=== PATIENT | female | born 2000 | race Caucasian/White ===

== ENCOUNTER 2021-07-14 10:54 | Emergency (ER) | payer BC, OTHER ==
[~2021-07-14] VITALS: Ht 154.9 cm; Wt 55.8 kg
[~2021-07-14 10:54] MED LIST: ASMANEX0.24 GM INH; CEPHALEXIN500 MG PO; MEDROXYPRO150 MG/1 M IM; VENTOLIN HFA18 GM INH
[2021-07-14] MEDS ORDERED: AMOXICILLIN500 MG PO (12:54)
== END 2021-07-14 17:05 | disposition home or self-care (01) ==
LOC: ED 10:54
DX: J02.9 Acute pharyngitis, unspecified (principal); J45.909 Unspecified asthma, uncomplicated; Z88.8 Allergy status to other drugs, medicaments and biological substances; Z88.2 Allergy status to sulfonamides; Z88.5 Allergy status to narcotic agent; Z88.1 Allergy status to other antibiotic agents; Z91.048 Other nonmedicinal substance allergy status; Z79.899 Other long term (current) drug therapy
CPT/HCPCS: 36415; 70491; 80048; 84703; 85025; 86140; 86308; 96375; 99284-25; J1100; J1885; J7030

== ENCOUNTER 2021-10-28 11:53 | Emergency (ER) | payer BC, OTHER ==
[~2021-10-28] VITALS: Ht 154.9 cm; Wt 55.3 kg
[~2021-10-28 11:53] MED LIST changes: +AMOXICILLIN500 MG PO
== END 2021-10-28 16:05 | disposition home or self-care (01) ==
LOC: ED 11:53
DX: J02.9 Acute pharyngitis, unspecified (principal); Z20.822 Contact with and (suspected) exposure to COVID-19; J45.909 Unspecified asthma, uncomplicated; Z88.8 Allergy status to other drugs, medicaments and biological substances; Z88.5 Allergy status to narcotic agent; Z88.2 Allergy status to sulfonamides; Z91.048 Other nonmedicinal substance allergy status; Z88.1 Allergy status to other antibiotic agents; Z79.899 Other long term (current) drug therapy
CPT/HCPCS: 87502; 87880; 99283; C9803; J1100; U0003

== ENCOUNTER 2021-11-26 06:22 | Emergency (ER) | payer BC, OTHER ==
[~2021-11-26] VITALS: Ht 154.9 cm; Wt 55.3 kg
--- OUTSIDE RECORDS SUMMARY | 2021-11-26 06:28 | XMS ---
PreManage Notification: PIERCE CHRISTINA Security Stunt Double Events No recent Security Events currently on file CRITERIA MET - [facility] - 2 Visits in 30 Days CARE PROVIDERS SHAAN RODRÍGUEZ Nurse Practitioner: Adult Health Current PHONE: [phone] Luz has no Care Guidelines for this patient. Joseph VISIT COUNT (12 MO.) 3 [facility] TOTAL 3 NOTE: Visits indicate total known visits. ED/UCC VISIT TRACKING (12 MO.) 11/26/2021 06:22 [facility] TYPE: Emergency COMPLAINT: - FLU SYMPTOMS 10/28/2021 11:54 [facility] TYPE: Emergency COMPLAINT: - SORE THROAT DIAGNOSES: - Other intermodal owner operator truck driver (current) drug therapy - Unspecified asthma, uncomplicated - Acute pharyngitis, unspecified - Contact with and (suspected) exposure to COVID-19 - Allergy status to other antibiotic agents - Allergy status to sulfonamides - Allergy status to other drugs, medicaments and biological substances - Other nonmedicinal substance allergy status - Allergy status to narcotic agent 07/14/2021 10:55 [facility] TYPE: Emergency COMPLAINT: - SWOLLEN TONSILS, FEVER, BODY/HEAD/EAR ACHES, SOB DIAGNOSES: - Unspecified asthma, uncomplicated - Cough, unspecified - Allergy status to narcotic agent - Allergy status to other antibiotic agents - Acute pharyngitis, unspecified - Allergy status to other drugs, medicaments and biological substances - Allergy status to sulfonamides - COUGH, UNSPECIFIED - Other intermodal owner operator truck driver (current) drug therapy - Other nonmedicinal substance allergy status INPATIENT VISIT TRACKING (12 MO.) No inpatient visits to display in this time frame [email or web address]
== END 2021-11-26 07:15 | disposition home or self-care (01) ==
LOC: ED 06:22
DX: U07.1 COVID-19 (principal); J35.1 Hypertrophy of tonsils; J45.909 Unspecified asthma, uncomplicated; Z88.1 Allergy status to other antibiotic agents; Z88.8 Allergy status to other drugs, medicaments and biological substances; Z88.5 Allergy status to narcotic agent; Z88.2 Allergy status to sulfonamides; Z91.048 Other nonmedicinal substance allergy status; Z79.899 Other long term (current) drug therapy
CPT/HCPCS: 87502; 99283; U0003

== ENCOUNTER 2023-04-07 22:04 | Emergency (ER) | payer BC, OTHER ==
[~2023-04-07] VITALS: Ht 154.9 cm; Wt 51.7 kg
[~2023-04-07 22:04] MED LIST changes: +BUDESONIDE-FO10.2 GM INH; +TRIAMCINOLONE A15 GM TOP
[2023-04-07] MEDS ORDERED: SYMBICORT 80-10.2 GM (22:17)
[2023-04-07 22:46] LABS: BASOPHILS 0.3 % (0-2); EOSINOPHILS 2.6 % (0-6); HEMATOCRIT 45.3 % (35.0-50.0); HEMOGLOBIN 15.6 g/dL (12.0-18.0); LYMPHOCYTES 20.8 % (24-44); MCH 31.6 (27-36); MCHC 34.5 g/dl (30-36); MCV 91.5 fl (81-99); MONOCYTES 7.2 % (0-12); NEUTROPHILS 69.1 % (39-80); PLATELET COUNT 365 K/uL (140-440); RBC 4.96 M/ul (4.3-5.7); RDW 12.7 (10.5-15.0)
[2023-04-07 22:52] LABS: BILIRUBIN, URINE POSITIVE (negative); BLOOD/HGB, URINE LARGE (Negative); KETONE, URINE TRACE (Negative); LEUK ESTERASE, URINE NEGATIVE (negative); NITRITE, URINE POSITIVE (negative); PH, URINE 6.5 (5-7)
[2023-04-07 22:57] LABS: EPITHELIAL CELLS, URINE SQUAMOUS 2+ /lpf (0-1+); RED BLOOD CELLS, URINE >50 /hpf (0-5)
[2023-04-07 22:58] LABS: ALBUMIN 5.2 g/dL (3.4-5.0); ALBUMIN/GLOBULIN RATIO 1.58 (1.1-2.4); ANION GAP 14.6 (7-21); BACTERIA, URINE RARE /hpf (negative); BUN/CREATININE RATIO 10.98 (6.0-28.6); CALCIUM 9.1 mg/dL (8.5-10.1); CREATININE, SERUM 0.91 mg/dL (0.55-1.02); POTASSIUM 3.6 mmol/L (3.5-5.1); PROTEIN, TOTAL 8.5 g/dL (6.4-8.2); REFLEX CULTURE, URINE No (No)
[2023-04-08] MEDS ORDERED: LEVOFLOXACIN500 MG PO (00:24)
[2023-04-08] MEDS ORDERED: TRAMADOL HCL50 MG PO (00:28)
[2023-04-08] MEDS ORDERED: ONDANSETRON ODT8 MG PO (00:28)
[2023-04-08 00:50] VITALS: BP 118/79
== END 2023-04-08 00:40 | disposition home or self-care (01) ==
LOC: ED 22:04
PROVIDERS: Family Medicine
DX: N12 Tubulo-interstitial nephritis, not specified as acute or chronic (principal); Q24.6 Congenital heart block; J45.909 Unspecified asthma, uncomplicated; Z95.0 Presence of cardiac pacemaker; Z91.048 Other nonmedicinal substance allergy status; Z88.1 Allergy status to other antibiotic agents; Z88.2 Allergy status to sulfonamides; Z88.8 Allergy status to other drugs, medicaments and biological substances; Z79.51 Long term (current) use of inhaled steroids
CPT/HCPCS: 36415; 74176; 80053; 81001; 84703; 85025; A9270; J1885; J2405; J7030

== ENCOUNTER 2023-10-26 17:08 | Emergency (ER) | payer BC, OTHER ==
[~2023-10-26] VITALS: Ht 154.9 cm; Wt 50.3 kg
[~2023-10-26 17:08] MED LIST changes: +LEVOFLOXACIN500 MG PO; +ONDANSETRON ODT8 MG PO; +SYMBICORT 80-10.2 GM; +TRAMADOL HCL50 MG PO
[2023-10-26] MEDS ORDERED: HYDROXYZINE HCL25 MG PO (18:28)
[2023-10-26 19:01] LABS: BASOPHILS 0.6 % (0-2); EOSINOPHILS 3.7 % (0-6); HEMOGLOBIN 14.5 g/dL (12.0-18.0); LYMPHOCYTES 19.7 % (24-44); MCH 31.5 (27-36); MCHC 34.4 g/dl (30-36); MCV 91.4 fl (81-99); MONOCYTES 7.6 % (0-12); NEUTROPHILS 68.4 % (39-80); PLATELET COUNT 313 K/uL (140-440); RDW 12.6 (10.5-15.0)
[2023-10-26] MEDS ORDERED: LACTATED RINGER'S 1,000 ML IV ONE (19:15)
[2023-10-26 19:21] LABS: ALBUMIN/GLOBULIN RATIO 1.25 (1.1-2.4); ANION GAP 12.6 (7-21); BILIRUBIN, TOTAL 1.1 ng/dL (0.2-1.0); BUN/CREATININE RATIO 12.94 (6.0-28.6); CALCIUM 8.7 mg/dL (8.5-10.1); CREATININE, SERUM 0.85 mg/dL (0.55-1.02); MAGNESIUM 1.9 mg/dL (1.8-2.4); POTASSIUM 3.6 mmol/L (3.5-5.1); PROTEIN, TOTAL 7.2 g/dL (6.4-8.2)
[2023-10-26] MEDS ORDERED: ONDANSETRON ODT4 MG PO (20:13)
[2023-10-26 20:29] VITALS: BP 118/80
== END 2023-10-26 20:29 | disposition home or self-care (01) ==
LOC: ED 17:08
PROVIDERS: Internal Medicine
DX: K52.9 Noninfective gastroenteritis and colitis, unspecified (principal); Z95.0 Presence of cardiac pacemaker; Z91.09 Other allergy status, other than to drugs and biological substances; Z88.1 Allergy status to other antibiotic agents; Z88.8 Allergy status to other drugs, medicaments and biological substances; Z88.2 Allergy status to sulfonamides; Z88.5 Allergy status to narcotic agent; Z79.899 Other long term (current) drug therapy
CPT/HCPCS: 36415; 80053; 83690; 83735; 84703; 85025; 99284; J7121

== ENCOUNTER 2024-08-11 16:52 | Emergency (ER) | payer OTHER ==
[~2024-08-11] VITALS: Ht 154.9 cm; Wt 53.8 kg
[~2024-08-11 16:52] MED LIST changes: +HYDROXYZINE HCL25 MG PO; +ONDANSETRON ODT4 MG PO
[2024-08-11] MEDS ORDERED: droPERidol 5 MG/2 ML VIAL IV ONE (17:15)
[2024-08-11] MEDS ORDERED: ondansetron HCL 4 MG/2 ML VIAL IV ONE (17:15)
[2024-08-11] MEDS ORDERED: SODIUM CHLORIDE 0.9% 1,000 ML IV ONE ×2 (17:15→19:30)
[2024-08-11] MEDS ORDERED: BUDESONIDE-FO10.2 GM IH (17:18)
[2024-08-11 17:48] LABS: BASOPHILS 0.2 % (0-2); EOSINOPHILS 0.7 % (0-6); HEMATOCRIT 43.8 % (35.0-50.0); HEMOGLOBIN 15.3 g/dL (12.0-18.0); LYMPHOCYTES 5.7 % (24-44); MCH 31.7 (27-36); MCHC 34.9 g/dl (30-36); MCV 90.9 fl (81-99); NEUTROPHILS 85.4 % (39-80); PLATELET COUNT 309 K/uL (140-440); RBC 4.82 M/ul (4.3-5.7); RDW 12.6 (10.5-15.0)
[2024-08-11 18:03] LABS: ALBUMIN 4.6 g/dL (3.4-5.0); ALBUMIN/GLOBULIN RATIO 1.44 (1.1-2.4); ANION GAP 20.8 (7-21); BILIRUBIN, TOTAL 1.4 mg/dL (0.2-1.0); CALCIUM 9.3 mg/dL (8.5-10.1); POTASSIUM 3.8 mmol/L (3.5-5.1); PROTEIN, TOTAL 7.8 g/dL (6.4-8.2)
[2024-08-11] MEDS ORDERED: PROMETHAZINE HC25 M1 PO (18:59)
[2024-08-11] MEDS ORDERED: ONDANSETRON ODT8 MG PO (18:59)
[2024-08-11] MEDS ORDERED: PROMETHAZINE HCL 25 MG HOME.PACK PO ONE (19:00)
[2024-08-11] MEDS ORDERED: ONDANSETRON 4 MG HOME.PACK SL ONE (19:00)
[2024-08-11] MEDS ORDERED: ACETAMINOPHEN 500 MG TAB PO ONE (19:30)
[2024-08-11 19:51] LABS: LACTIC ACID, BLOOD 1.4 mmol/L (0.4-2.0)
[2024-08-11 20:01] LABS: CORONAVIRUS COVID-19 AG NEGATIVE (NEGATIVE); INFLUENZA A AG POSITIVE (NEGATIVE); INFLUENZA B AG NEGATIVE (NEGATIVE)
[2024-08-11] MEDS ORDERED: OSELTAMIVIR PHOSPHATE 75 MG HOME.PACK PO ONE (20:15)
[2024-08-11 21:01] LABS: BILIRUBIN, URINE NEGATIVE (negative); BLOOD/HGB, URINE NEGATIVE (Negative); KETONE, URINE >=80 (Negative); LEUK ESTERASE, URINE NEGATIVE (negative); NITRITE, URINE NEGATIVE (negative); PH, URINE 8.5 (5-7)
[2024-08-11 21:26] VITALS: BP 106/68
== END 2024-08-11 21:26 | disposition home or self-care (01) ==
LOC: ED 16:52
PROVIDERS: Emergency Medicine
DX: J10.1 Influenza due to other identified influenza virus with other respiratory manifestations (principal); J45.909 Unspecified asthma, uncomplicated; Z79.51 Long term (current) use of inhaled steroids; Z79.899 Other long term (current) drug therapy; Z91.048 Other nonmedicinal substance allergy status; Z88.5 Allergy status to narcotic agent; Z88.2 Allergy status to sulfonamides; Z88.8 Allergy status to other drugs, medicaments and biological substances; Z88.1 Allergy status to other antibiotic agents
CPT/HCPCS: 36415; 71045; 80053; 81003; 83605; 83690; 84703; 85025; 87040; 96374; 96375; 99285-25; A9270; G0103; J1790; J2405; J7030

== ENCOUNTER 2024-12-11 20:32 | Emergency (ER) | payer OTHER ==
[~2024-12-11] VITALS: Ht 154.9 cm; Wt 57.0 kg
[~2024-12-11 20:32] MED LIST changes: +BUDESONIDE-FO10.2 GM IH; +PROMETHAZINE HC25 M1 PO
[2024-12-11] MEDS ORDERED: ALBUTEROL SULFATE 0.5% 2.5 MG/0.5 ML VIAL INH ONE (21:00)
[2024-12-11] MEDS ORDERED: ALBUTEROL/IPRATROPIUM 3 ML NEB INH ONE (21:00)
[2024-12-11] MEDS ORDERED: predniSONE 20 MG TAB PO ONE (21:00)
[2024-12-11] MEDS ORDERED: BUDESONIDE 0.5 MG/2 ML VIAL INH ONE (21:00)
[2024-12-11] MEDS ORDERED: ALBUTEROL SULFATE 0.083% 3 ML VIAL ONE (21:14)
[2024-12-11] MEDS ORDERED: methylPREDNISolone 4 MG HOME.PACK PO ONE (22:00)
[2024-12-11] MEDS ORDERED: AZITHROMYCIN 250 MG HOME.PACK PO ONE (22:00)
[2024-12-11 22:30] VITALS: BP 126/78
== END 2024-12-11 22:31 | disposition home or self-care (01) ==
LOC: ED 20:32
DX: J45.901 Unspecified asthma with (acute) exacerbation (principal); Z79.51 Long term (current) use of inhaled steroids; Z79.899 Other long term (current) drug therapy; Z91.048 Other nonmedicinal substance allergy status; Z88.1 Allergy status to other antibiotic agents; Z88.5 Allergy status to narcotic agent; Z88.2 Allergy status to sulfonamides
CPT/HCPCS: 71045; 94640; 94799; 99285-25; J7512